=== PATIENT | female | born 1965 | race Caucasian/White ===

== ENCOUNTER 2018-01-28 14:15 | Emergency (ER) | payer OTHER ==
[~2018-01-28] VITALS: Ht 154.9 cm; Wt 81.6 kg
[~2018-01-28 14:15] MED LIST: ACETAMINOPHEN/O1 TA2 PO; ACIPHEX 20MG20 MG PO; CRESTOR10 M1 PO; CRESTOR10 MG PO; CYCLOBENZAPRINE10 M1 PO; HYDROCHLOROTHIA1 TA1 PO; IBUPROFEN600 M1 PO; LISINOPRIL-HCT1 EAC2 PO; PERCOCET 325 MG1 TA2 PO; PERCOCET 5-3251 EACH PO; RABEPRAZOLE SOD20 M1 PO; TOPROL XL 25MG25 MG PO; TOPROL XL25 M1 PO; ZOFRAN 4 MG TABL4 MG PO; ZOFRAN ODT4 M1 PO
[2018-01-28 15:47] LABS: ABSOLUTE BASOPHIL COUNT 0.1 /CUMM (0.0-0.2); ABSOLUTE EOSINOPHIL COUNT 0.2 /CUMM (0.0-0.7); ABSOLUTE GRANULOCYTE CT 4.6 /CUMM (1.4-6.5); ABSOLUTE LYMPH COUNT 2.6 /CUMM (1.2-3.4); ABSOLUTE MONOCYTE COUNT 0.5 /CUMM (0.10-0.60); EOSINOPHIL % 3.1 % (0-5); GRANULOCYTE % 57.1 % (42.2-75.2); HEMATOCRIT 44.4 % (37-47); MEAN CORPUSCULAR HGB 28.6 PG (27.0-31.0); MEAN CORPUSCULAR HGB CONC 32.3 G/DL (33.0-37.0); MEAN CORPUSCULAR VOLUME 88.3 FL (81.0-99.0); MEAN PLATELET VOLUME 8.1 FL (7.4-10.4); PLATELET COUNT 338 /CUMM (130-400); RBC DISTRIBUTION WIDTH 13.2 % (11.5-14.5); RED BLOOD CELL CT 5.03 /CUMM (4.20-5.40); WHITE BLOOD CELL COUNT 8.1 /CUMM (4.8-10.8)
--- NOTE | 2018-01-28 15:49 | ED AMS/SEIZURE/WEAK/DIZZY ---
History of Present Illness General Chief Complaint: General Adult Stated Complaint: PT IS DIZZY AND SICK TO HER STOMACH Source: patient, family, old records Exam Limitations: no limitations Vital Signs & Intake/Output Vital Signs & Intake/Output Vital Signs Date Time Temp Pulse Resp B/P B/P Pulse O2 O2 Flow FiO2 Mean Ox Delivery Rate 01/28 1711 70 18 157/79 97 Room Air 01/28 1647 98 Room Air 01/28 1419 97.0 103 20 180/90 98 Room Air Allergies Coded Allergies: Sulfa (Sulfonamide Antibiotics) (UNKNOWN 02/27/16) azithromycin (UNKNOWN 02/27/16) clarithromycin (UNKNOWN 02/27/16) propoxyphene (UNKNOWN 02/27/16) Reconcile Medications Cyclobenzaprine HCl 10 MG TABLET 1 TAB PO 4 TIMES/DAY PRN MUSCLE SPASM Ibuprofen 600 MG TABLET 1 TAB PO TID PRN pain with food LISINOPRIL/HYDROCHLOROTHIAZIDE (Lisinopril-Hctz 10-12.5 MG Tab) 1 TAB TAB 1 TAB PO DAILY HEART (Reported) Lisinopril/Hydrochlorothiazide (Lisinopril-Hctz 10-12.5 MG Tab) 10 MG-12.5 MG TABLET 1 TAB PO DAILY HIGH BLOOD PRESSURE (Reported) Metoprolol Succ XL (Toprol XL 25MG) 25 MG TAB 1 TAB PO DAILY HEART (Reported) Metoprolol Succ XL (Toprol XL) 25 MG TAB 1 TAB PO DAILY HIGH BLOOD PRESSURE ( Reported) Ondansetron (Zofran Odt) 4 MG TAB.RAPDIS 1 TAB PO Q8H PRN NAUSEA OXYCODONE HCL/ACETAMINOPHEN (Percocet 5-325 MG Tablet) 325 MG/5 MG TAB 1 TAB PO Q8 PRN PAIN Oxycodone HCl/Acetaminophen (Percocet 5-325 MG Tablet) 5 MG-325 MG TABLET 1 TAB PO 4XDP PRN PAIN TEN...[id number] Rabeprazole Sodium 20 MG TABLET.DR 1 TAB PO DAILY ACID REFLUX (Reported) Rosuvastatin Calcium (Crestor) 10 MG TAB 1 TAB PO DAILY CHOLESTEROL (Reported ) Rosuvastatin Calcium (Crestor) 10 MG TABLET 1 TAB PO DAILY HIGH CHOLESTROL ( Reported) Triage Note: PT TO ED C/O DIZZINESS X 2 TIMES TODAY. "I ALMOST FELL OFF MY BED". C/O FEELING SLIGHTLY DIZZY AT THIS TIME. Triage Nurses Notes Reviewed? yes HPI: Patient presents with 2 complaints. Her first complaint is right upper quadrant abdominal pain. She describes it as sharp and stabbing in nature. The pain is constant however goes away after she takes pain medication but then comes back.. Patient states that she had a hernia repair one month ago and was fine for 3 weeks prior to this pain starting. Patient had a follow-up will point with her surgeon today however he had to cancel the appointment. Her other complaint is room spinning dizziness associated with nausea. The symptoms started this afternoon. The symptoms worsen with movement of her head. She denies any ringing or ears. There is no headache. There is no blurry vision. Past History Travel History Traveled to [place] past 21 day No Medical History Any Pertinent Medical History? see below for history Neurological: NONE EENT: NONE Cardiovascular: NONE Respiratory: NONE Gastrointestinal: umbilical hernia, Hernias Hepatic: NONE Renal: KIDNEY STONES Musculoskeletal: NONE Psychiatric: NONE Endocrine: NONE Blood Disorders: NONE Cancer(s): NONE AWS CONSULTANT/Reproductive: NONE Surgical History Surgical History: hernia repair x 3 Exploratory laparotomy Psychosocial History Who do you live with Patient/Self What is your primary language Brazilian Tobacco Use: Current Daily Use Daily Tobacco Use Amount/Type: => 5 Cigarettes daily ETOH Use: denies use Illicit Drug Use: denies illicit drug use Family History Hx Contributory? No Review of Systems Review of Systems Constitutional: Reports: no symptoms. EENTM: Reports: no symptoms. Respiratory: Reports: no symptoms. Cardiovascular: Reports: no symptoms. GI: Reports: see HPI, abdominal pain, nausea. Genitourinary: Reports: no symptoms. Musculoskeletal: Reports: no symptoms. Skin: Reports: no symptoms. Neurological/Psychological: Reports: see HPI. Hematologic/Endocrine: Reports: no symptoms. Immunologic/Allergic: Reports: no symptoms. All Other Systems: Reviewed and Negative Physical Exam Physical Exam General Appearance: well developed/nourished, alert, awake, anxious, moderate distress Head: atraumatic, normal appearance Eyes: Bilateral: PERRL, EOMI. Ears, Nose, Throat: normal pharynx, normal ENT inspection, hearing grossly normal Neck: normal inspection, supple, full range of motion Respiratory: normal breath sounds, chest non-tender, no respiratory distress, lungs clear Cardiovascular: regular rate/rhythm, normal peripheral pulses Gastrointestinal: normal bowel sounds, soft, non-tender, no organomegaly Back: normal inspection, normal range of motion Extremities: normal range of motion Neurologic/Psych: no motor/sensory deficits, awake, alert, oriented x 3, normal gait, normal mood/affect Skin: intact, normal color, warm/dry Lymphatic: no anterior cervical rosa maria Core Measures ACS in differential dx? No CVA/TIA Diagnosis No Sepsis Present: No Sepsis Focused Exam Completed? No Progress Differential Diagnosis: benign positional vertigo, electrolyte imbalance, labrynthitis, Meniere's disease Plan of Care: Orders Procedure Date/time Status TROPONIN LEVEL 01/28 151 Complete LIPASE 01/28 151 Complete HUMAN BETA HCG SCREEN 01/28 151 Complete COMPREHENSIVE METABOLIC PANEL 01/28 151 Complete CBC WITHOUT DIFFERENTIAL 01/28 151 Complete EKG 01/28 1423 Active Laboratory Tests 01/28/18 1542: Anion Gap 9, Estimated GFR > 60, BUN/Creatinine Ratio 25.0, Glucose 99, Calcium 10.2, Total Bilirubin 0.4, AST 22, ALT 28, Alkaline Phosphatase 79, Troponin I < 0.01, Total Protein 7.0, Albumin 4.4, Globulin 2.6, Albumin/Globulin Ratio 1.7, Lipase 287, Total Beta HCG NEGATIVE, CBC w Diff NO MAN DIFF REQ, RBC 5.03, MCV 88.3, MCH 28.6, MCHC 32.3 L, RDW 13.2, MPV 8.1, Gran % 57.1, Lymphocytes % 32.6 , Monocytes % 6.2, Eosinophils % 3.1, Basophils % 1.0, Absolute Granulocytes 4.6 , Absolute Lymphocytes 2.6, Absolute Monocytes 0.5, Absolute Eosinophils 0.2, Absolute Basophils 0.1 Diagnostic Imaging: Viewed by Me: CT Scan. Discussed w/RAD: CT Scan. Radiology Impression: PATIENT: MYLA SIDHU PRESENT AGE: 52 PATIENT ACCOUNT NO: [id number] : 67 LOCATION: [facility] ORDERING PHYSICIAN: Avery Cedeno MD SERVICE DATE: 01/28/18 EXAM TYPE: CAT - CT ABD & PELVIS W IV CONTRAST EXAMINATION: CT ABDOMEN AND PELVIS WITH CONTRAST CLINICAL INFORMATION: Right upper quadrant pain status post hernia repair. COMPARISON: 11/10/2017. TECHNIQUE: Contiguous axial thin section helical images of the abdomen and pelvis were performed following the administration of 95 mL of intravenous Optiray 320. The data set was reformatted in the coronal and sagittal planes and reviewed on an independent workstation. DLP: 615 mGy-cm. FINDINGS: There is mild dependent bibasilar atelectasis. There is a stable 5 mm nodule within the posterior basal segment of the left lower lobe on image 157/ 800. The visualized lung bases are otherwise clear. The visualized portions of the heart are unremarkable. The liver is of normal size and attenuation without focal lesions. There is mild intrahepatic biliary ductal dilation. The patient is status post cholecystectomy. Surgical clips are present. The spleen, pancreas , adrenal glands are unremarkable. Both kidneys are of normal size and attenuation without hydronephrosis or nephrolithiasis. Following the administration of IV contrast, prompt symmetric nephrograms are displayed. There is no abdominal free fluid. There is neither mesenteric nor retroperitoneal lymphadenopathy. Normal unopacified loops of small and large bowel are identified. The appendix is not visualized. There is no pelvic free fluid. The urinary bladder is unremarkable. There is neither pelvic nor inguinal lymphadenopathy. Bone windows: Neither sclerotic nor lytic bone lesions are identified. IMPRESSION: No evidence for acute abdominal or pelvic inflammatory or infectious processes. Mild intrahepatic biliary ductal dilation status post cholecystectomy. Stable 5 mm left lower lobe pulmonary nodule. DICTATED BY: Ludwig Mota MD DATE/TIME DICTATED:01/28/181820 PUBLIC ADDRESS SYSTEM OPERATOR:MARION DATE/TIME TRANSCRIBED:01/28/181820 CONFIDENTIAL, DO NOT COPY WITHOUT APPROPRIATE AUTHORIZATION. <Electronically signed in Other Vendor System> SIGNED BY: Ludwig Mota MD 01/28/181830 Initial ED EKG: NSR, no ST T wave changes Prior EKG: unchanged Comments: ROOM SPINNINGDIZZINESS RESOLVED AFTER ZOFRAN AND ANTIVERT. Departure Departure Disposition: HOME OR SELF CARE Condition: Stable Clinical Impression Primary Impression: Vertigo Secondary Impressions: Abdominal pain, unspecified site Qualifiers: Abdominal location: right upper quadrant Qualified Code: R10.11 - Right upper quadrant pain Referrals: Smo DOBBINS,Girma (PCP/Family) Abhishek DOBBINS,Paulo Aguilar Additional Instructions: TAKE ZOFRAN NEEDED FOR NAUSEA TAKE ANTIVER NEEDED FOR DIZZINESS CONTINUE THE PERCOCET NEEDED FOR PAIN Departure Forms: Customer Survey General Discharge Information Prescriptions: Current Visit Scripts Ondansetron (Zofran Odt) 1 TAB SL TID PRN NAUSEA #10 TAB Meclizine HCl 1 TAB PO TIDPRN PRN DIZZINESS #30 TAB Oxycodone HCl/Acetaminophen (Percocet 5-325 MG Tablet) 1-2 TAB PO Q6P PRN PAIN #20 TAB
[2018-01-28 17:11] VITALS: BP 157/79
--- NOTE | 2018-01-28 18:31 | CT SCAN REPORT ---
EXAMINATION: CT ABDOMEN AND PELVIS WITH CONTRAST CLINICAL INFORMATION: Right upper quadrant pain status post hernia repair. COMPARISON: 11/10/2017. TECHNIQUE: Contiguous axial thin section helical images of the abdomen and pelvis were performed following the administration of 95 mL of intravenous Optiray 320. The data set was reformatted in the coronal and sagittal planes and reviewed on an independent workstation. DLP: 615 mGy-cm. FINDINGS: There is mild dependent bibasilar atelectasis. There is a stable 5 mm nodule within the posterior basal segment of the left lower lobe on image 157/800. The visualized lung bases are otherwise clear. The visualized portions of the heart are unremarkable. The liver is of normal size and attenuation without focal lesions. There is mild intrahepatic biliary ductal dilation. The patient is status post cholecystectomy. Surgical clips are present. The spleen, pancreas, adrenal glands are unremarkable. Both kidneys are of normal size and attenuation without hydronephrosis or nephrolithiasis. Following the administration of IV contrast, prompt symmetric nephrograms are displayed. There is no abdominal free fluid. There is neither mesenteric nor retroperitoneal lymphadenopathy. Normal unopacified loops of small and large bowel are identified. The appendix is not visualized. There is no pelvic free fluid. The urinary bladder is unremarkable. There is neither pelvic nor inguinal lymphadenopathy. Bone windows: Neither sclerotic nor lytic bone lesions are identified. IMPRESSION: No evidence for acute abdominal or pelvic inflammatory or infectious processes. Mild intrahepatic biliary ductal dilation status post cholecystectomy. Stable 5 mm left lower lobe pulmonary nodule.
[2018-01-28] MEDS ORDERED: PERCOCET 5-3251 EACH PO (18:40)
[2018-01-28] MEDS ORDERED: ZOFRAN ODT4 M1 SL (18:40)
[2018-01-28] MEDS ORDERED: MECLIZINE HCL25 MG PO (18:40)
== END 2018-01-28 18:49 ==
LOC: ERH 14:15
PROVIDERS: Physician Assistant Medical
DX: R42 Dizziness and giddiness (principal); R10.11 Right upper quadrant pain
CPT/HCPCS: 74177; 93005; 93010; 96374; 96375; J2405